=== PATIENT | male | born 1990 | race Caucasian/White ===

== ENCOUNTER 2016-10-02 15:02 | Day surgery (SDC) | payer OTHER ==
[~2016-10-02] VITALS: Ht 177.8 cm; Wt 70.0 kg
[~2016-10-02 15:02] MED LIST: 0.9% Sodium Chloride 1,000 ML IV PRN; Sodium Chloride LOK Flush 10 mL Syringe IV PRN; fentaNYL-PF 50 mCg/mL 2 mL Inj IVPUSH PRN
[2016-10-02] MEDS ORDERED: Propofol 10,000 mCg/mL 20 mL Inj ONE (15:03)
[2016-10-02 15:18] VITALS: BP 115/67; PULSE 62; RESP 16; O2SAT 99
[2016-10-02] MEDS ORDERED: Lactated Ringer's 1,000 ML IV ONE (15:40)
[2016-10-02] MEDS ORDERED: Lactated Ringer's 1,000 ML IV SCH (15:41)
[2016-10-02] MEDS ORDERED: Ondansetron 2 mg/mL 2 mL Inj IVPUSH PRN (15:45)
[2016-10-02] MEDS ORDERED: MetoCLOpramide 5 mg/mL 2 mL Inj IVPUSH PRN (15:45)
[2016-10-02 15:59] VITALS: BP 115/65; PULSE 86; RESP 14; O2SAT 95
--- NOTE | 2016-10-02 16:00 | PCM.ENDEGD ---
EGD Date of Service: Oct 02, 2016 Physician Cristo Coon MD Pre Procedure Diagnosis: Abdominal pain and early satiety Post Procedure Dx & Findings: Gastritis healing erosion Procedure Esophagogastroduodenoscopy PROCEDURE IN DETAIL: After proper sedation, Olympus video endoscope was inserted into patient's mouth and esophagus was successfully intubated. Scope introduced esophagus. Esophagus showed normal shiny whitish mucosa consistent with squamous cell component. Z line was intact at 37 cm from the incisors. Scope further advanced to the stomach. Stomach showed patchy reddish mottled mucosa concerning for gastritis. Biopsies obtained. Also at the prepylorus there was a centimeter swelling in the Center appears to be consistent with healing superficial ulcer. Biopsies were obtained at the healing ulcer site and as well as the rest of the stomach for gastritis. These were placed in the same bottle. Cardia fundus body antrum pylorus were all visualized. Retroflexion was done. Stomach was easily inflated and deflatable using air. Scope further events to the distal duodenum. Duodenum revealed normal villous structures with normal appearing folds without any mass ulcer erosion. 5 biopsies obtained in the duodenal to rule out celiac disease. Impression Gastritis Healing superficial ulcer Recommendation Biopsies awaiting Presedation Assessment Risks and Benefits Informed consent was obtained from the patient after all risks and benefits including but not limited to drug reaction, infection, pain, bleeding, perforation, as well as alternatives were discussed. Patient monitoring Continuous pulse oximetry, cardiac monitoring, blood pressure monitoring, IV access, and oxygen at 2L per nasal cannula. Complications There were no periprocedural complications identified. Post Procedure Plan Post Procedure Recommendations 1. Restrict activities today. 2. Resume normal activities in the morning. 3. Resume medications. 4. GERD behavioral modification: - Avoid fatty, acidic, spicy, large meals - Do not lie down after meals - Do not eat or drink anything for at least 2 1/2 hours before going to bed at night - Discontinue tobacco and alcohol - Decrease or avoid caffeine - Avoid chocolate and mints - Decrease weight - Avoid aspirin and non steroidal anti-inflammatory agents (NSAID) such as Aleve, Advil, Mobic, Naproxen, Ibuprofen, etc 5. Add proton pump inhibitor. Take 30 minutes before 1st meal of the day. 6. Patient informed of normal post procedure side effects as bloating, drowsiness, blood streaking in the stool 7. If gastric biopsy reveal H.pylori, continue with appropriate treatment 8. If small bowel biopsy reveals celiac, continue with appropriate treatment 9. Please don't hesitate to call me with any questions Cristo Coon MD Oct 02, 2016 16:00
[2016-10-02 16:10] VITALS: BP 119/67; PULSE 73; RESP 14; O2SAT 98
[2016-10-02 16:21] VITALS: BP 110/59; PULSE 88; RESP 14; O2SAT 94
--- NOTE | 2016-10-02 16:28 | PCM.HPANE ---
Patient Data Surgeon Admitting Provider: Attending Provider:Cristo Coon MD Primary Care Physician:Yaneth Other Provider: Reason for Visit Abdominal Pain Ht/WT & BMI Height (Feet): 5 Height (Inches): 10 Weight (Kilograms): 70 Body Mass Index 22.00 Allergies Coded Allergies: No Known Allergies (Unverified , 10/02/16) Past Anesthesia History Anesthesia History: Denies:: Abnormal Airway, Anesthesia Reactions, Difficult Intubation, Fam Anesthesia Reaction, Fam Malignant Hypertherm, Malignant Hyperthermia Diabetes History Hx Diabetes?: No MRSA MRSA: No Medications Hypertension Medication: No Home Meds Incl Beta Asim: No Previous Beta Asim Dose >24: Dose Not Given, Contraindicated No Active Prescriptions or Reported Meds History History of ENT Problems?: No HEENT History: Denies:: Abnormal Airway Cataracts Difficult Intubation Dysphagia Glaucoma Hearing Problem Sinus Problem TMJ Denture Type: None Teeth Condition: Within Normal Limits Hx of Heart Problems?: No Cardiovascular History: Denies:: AICD Abdominal Aortic Aneurism Atrial Fibrillation Cardiac Surgery Chest Pain Congestive Heart Failure Coronary Artery Disease Edema Heart Murmur Hypertension Irregular Heartbeat Pacemaker Peripheral Vascular Rheumatic Fever Thrombophlebitis Valvular Heart Disease Hx of Respiratory Problem?: No Respiratory History: Denies:: Asthma COPD Chest Surgery Cough Dyspnea Emphysema Hemoptysis Oxygen Administration Pneumonia Pulmonary Embolism Tuberculosis Use of C-PAP Machine Use of Inhalers / NEBS Hx Neurologic Problems?: No Neurological History: Denies:: Alzheimer's Disease CVA Dementia Dizziness Headaches Multiple Sclerosis Parkinson's Disease Peripheral Neuropathy Seizures TIA Hx of GI Problems?: No Gastrointestinal History: Denies:: Cirrhosis Diverticulitis Gall Bladder Disease Gastroesphageal Reflux Gastrointestinal Bleeding Heartburn Hepatitis Hiatal Hernia Liver Disease Rectal Bleeding Hx of Problems?: No Genitourinary History: Denies:: HX of Hemodialysis Kidney Stones Urinary Tract Infection HX of Peritoneal Dialysis: No Male Hx: Denies:: Prostate Problems Scrotal Mass Testicular Surgery Skin History: Denies:: History Skin Disorders? Pressure Ulcers Hx Musculoskeletal Problems?: No Musculoskeletal History: Denies:: Back Injury Degenerative Joint Fibromyalgia Joint Replacement Musculoskeletal Trauma Myasthenia Gravis Osteoarthritis Rheumatoid Arthritis Systemic Lupus Hx of Psycho/Social Problems?: No Psycho Social History: Positive for:: Anxiety Denies:: Bipolar Disorder Hx Depression Suicide Attempt Hx Surgeries?: No (WTE) Hx Any Other Health Problems?: No Other History: Denies:: Cancer Endocrine Disease Hospitalization Thyroid Disease History Blood Transfusions: Denies:: Accept Blood Products? Blood Transfuse Reaction Blood Transfusions Hx Diabetes: No Hx Alcohol Use: NoHx Substance Use: Yes Smoking Status: Current Every Day Smoker (marijuana) Have You Smoked inLast 12 mo: Yes Stop/Bang Treated for Sleep Apnea?: No Do You Have a CPAP Machine?: No S-Snoring: Do You Snore Loudly: No T-Tired: feel tired, fatigued: No O-Obsered: Observed not breath: No P-Blood Pressure: treated: No B- Body Mass Index > 35 kg/m2: No A- Age over 50: No N- Neck Large Circumference: No G- Gender Male: Yes ROMERO Total Score: 1 ROMERO Risk Assessment: Low Risk, <3 Yes Risk Assessment Category Category 1A: Patient has history of documented sleep apnea, and HAS NOT received any narcotic, sedative or anesthesia administration during this stay. Category 1B: Patient has history of documented sleep apnea, and HAS received any narcotic , sedative or anesthesia administration during this stay Category 2: Patient has SUSPECTED Obstructive Sleep Apnea, and HAS received any narcotic , sedative or anesthesia administration during this stay. Category 3: Patient has SUSPECTED Obstructive Sleep Apnea and HAS NOT received narcotic, sedative or anesthesia administration during this stay. Category 4: Outpatient in Procedural Areas with known sleep apnea or who screen positive for High Risk via the STOP/BANG questionnaire. Exam Exam Vital Signs Vital Signs Date Time Temp Pulse Resp B/P Pulse Ox O2 Delivery O2 Flow Rate FiO2 10/02/16 15:18 36.5 62 16 115/67 99 Room Air General Appearance: Alert, Oriented X3, Cooperative, No Acute Distress HEENT/AIRWAY: MP 2, Neck Movement (FROM), Mouth Opening (3 FBMO) Lungs: Clear to Auscultation, Normal Air Movement Heart: Exam Unremarkable, Regular Rate/Rhythm, No Murmurs/Rubs/Gallops Plan Impression Patient chart reviewed, patient interviewed and anesthestic plan with risks, benefits, and alternatives discussed, and informed consent obtained. NPO per Anesth. Guidelines: Yes ASA Physical Status: ASA2 Mod Systemic Disease Anesthetic Plan: GA, MAC Bene/Risks/Altern/Consents: Yes HP Complete Prior to Induction: Yes Other Due to the patient's chronic low back pain he uses frequent marijuana. After a discussion with Dr. Coon is was determine that anesthesia with propofol would likely be necessary. Floyd Brewster MD Oct 02, 2016 15:40
--- NOTE | 2016-10-02 16:28 | PCM.ANEP1 ---
Post Anesthesia Phase 1 PACU Phase 1 Assessment Date of Service: Oct 02, 2016 Vital Signs Vital Signs Date Time Temp Pulse Resp B/P Pulse Ox O2 Delivery O2 Flow Rate FiO2 10/02/16 16:10 73 14 119/67 98 Room Air 10/02/16 15:59 36.7 86 14 115/65 95 Room Air 10/02/16 15:18 36.5 62 16 115/67 99 Room Air Anesthetic Administered: GA Level of Alertness: Awake, talking BREWSTER's with Equal Strength: Yes Pain: No Nausea or Vomiting: No Cardiovascular Function and Hy: No Oxygen Delivery: Simple Mask Lungs: Clear to Auscultation, Normal Air Movement Dermatome Level: Full Sensation Complications: No Follow up Care: No Floyd Brewster MD Oct 02, 2016 16:28
--- NOTE | 2016-10-05 15:33 | PATH ---
SURGICAL PATHOLOGY Attending Physician:Cristo Coon M.D. CASE STATUS: Signed Out PATIENT NAME: JOSE FAN PID: [id number] : 1990 DATE COLLECTED:10/02/2016 00:00 SPECIMEN: 1: Stomach, Antrum, Biopsy 2: Gastric, Biopsy CLINICAL HISTORY: 1). ANTRUM ULCER BIOPSY 2). GASTRIC BIOPSY FINAL DIAGNOSIS: 1. Antrum Ulcer, Biopsy: Antral-type mucosa and small intestinal mucosa with mucosal erosion and otherwise no significant histomorphologic abnormality. Negative for active inflammation, features of sprue, dysplasia or malignancy. 2. Gastric Biopsy: Gastric antral and body-type mucosa with reactive gastropathy and very mild, chronic gastritis. Negative for H. pylori organisms by H&E stain. Immunohistochemistry studies pending; results will be reported as an addendum. Negative for dysplasia and malignancy. ICD10: K29.7 GROSS DESCRIPTION: The specimen is received in two formalin filled containers labeled with the patient's name. 1). The specimen is sublabeled "antrum ulcer" and consists of 3 portions of tissue which aggregate to 0.3 x 0.3 x 0.2 CM. The specimen is entirely submitted in cassette 1A. 2). The specimen is sublabeled "gastric" and consists of 4 portions of tissue which aggregate to 0.4 x 0.4 x 0.2 CM. The specimen is entirely submitted in cassette 2A. 10/03/2016 [facility] ICD-9 CODES: CPT CODES: 1: 09852 2: 25711, 17917 PROCEDURE/ADDENDA: Immunohistochemistry SPI Interpretation {Not Entered} Results-Comments Part 2: This addendum is issued to report the results of immunohistochemistry. The final diagnosis is unchanged. An immunohistochemical stain for Helicobacter was performed to evaluate for Helicobacter organisms and is negative. A control stain showed appropriate reactivity. This test was developed and its performance characteristics determined by [employer]. It has not been cleared or approved by the [place] Food and Drug Administration. The FDA has determined that such clearance or approval is not necessary. This test is used for clinical purposes. It should not be regarded as investigational or for research. Electronically Signed Out Ashely Tinoco MD Electronically Signed Out Jolanta Willis MD [facility] [address], [place] [address] Technical component performed at [facility], [place], [address], [place], [address]
== END 2016-10-02 23:59 | disposition home or self-care (01) ==
LOC: END 15:02
PROVIDERS: ATTEND Internal Medicine
DX: K29.50 Unspecified chronic gastritis without bleeding (principal); F41.9 Anxiety disorder, unspecified; F17.210 Nicotine dependence, cigarettes, uncomplicated; F12.90 Cannabis use, unspecified, uncomplicated
CPT/HCPCS: 43239; J7030